=== PATIENT | female | born 1980 | race Hispanic/Latino ===

== ENCOUNTER 2018-02-01 22:04 | Emergency (ER) | payer BC, OTHER, SELFPAY | END 2018-02-01 23:05 | LOC: NAV ERS 22:04 | DX: Z04.1 Encounter for examination and observation following transport accident (principal) | CPT/HCPCS: 99283 ==

== ENCOUNTER 2018-09-19 19:48 | Emergency (ER) | payer BC, SELFPAY ==
[2018-09-19 20:21] LABS: Bilirubin Negative (Negative); Blood, Urine Large (Negative); Glucose, Urine (Dipstick) Negative (Negative); Leukocyte Large (Negative); Nitrite Positive (Negative); Protein, Urine (Dipstick) 100 mg/dL (Neg-Trace); Urobilinogen 0.2 mg/dL (0.2-1.0); pH, Urine 6.5 (5.0-9.0)
[2018-09-19 20:22] LABS: Clarity Cloudy (Clear)
[2018-09-19 20:23] LABS: Bacteria/HPF Rare-Few HPF (None Seen); RBC/HPF GREATER THAN 50-TNTC HPF (0-3)
[2018-09-19 20:24] LABS: Pregnancy Test - Urine (BHCG) Negative (Negative); Pregu Control Background? CLEAR/WHITE (CLR/WHITE); Pregu Control Bar Appear? YES (CONTROL BAR)
[2018-09-19] MEDS ORDERED: traMADol HCl 50 MG TAB ONE (20:40)
[2018-09-19] MEDS ORDERED: Sulfameth/Trimethoprim DS 800-160mg TAB ONE (20:40)
[2018-09-19] MEDS ORDERED: Phenazopyridine HCl 97.5 MG TABLET ONE (20:40)
== END 2018-09-19 20:50 | disposition home or self-care (01) ==
LOC: NAV ERS 19:48
DX: N30.01 Acute cystitis with hematuria (principal)
CPT/HCPCS: 81003; 81015; 81025; 87077; 87086; 87186; 99283